=== PATIENT | male | born 1950 | race Caucasian/White ===

== ENCOUNTER → 2016-12-04 | Outpatient (CLI) | payer MEDICARE, BC ==
[~2016-12-04] MED LIST: ASPIRIN EC81 M1 PO; ASPIRIN PO; BRILINTA60 MG PO; FLEXERIL PO; GLUCOTROL XL PO; LISINOPRIL PO; MEDROL PO; METFORMIN HCL1000 M1 PO; METFORMIN PO; METOPROLOL SUCC25 MG PO; NITROSTAT0.4 MG SL; PLAVIX PO; TOPROL XL PO; VICODIN 5/500 T1 TAB PO; ZESTRIL40 MG PO; ZOCOR PO; ZOCOR20 MG PO
--- NOTE | ~2016-12-04 | XA16 ---
[facility] A Service of [facility] RADIOLOGY TEXT RESULTS PATIENT: GM SANDOVAL LOCATION: [facility] : 51 UNIT #: [id number] AGE: [address]: Jerry Lamb MD SEX: M ORDER DR: [id number] [place] [id number] [facility] [place] [facility]. [place], [place] [address] [id number] O MR#: [id number] Acc #: [id number] NAME: GM SANDOVAL : 1950 SEX: M STUDY DATE/TIME: 12/04/2016 UNIT: [facility] ROOM: STUDY DESCRIPTION: XA Angio Extremity Bilateral Attending Physician: Jerry Lamb M.D. Ordering Physician: Jerry Lamb M.D. Primary Care Physician: Maryellen Reed A.P.R.N. MEDICAL IMAGING REPORT This report is preliminary unless electronic signature is present PREOPERATIVE DIAGNOSIS Peripheral vascular disease. POSTOPERATIVE DIAGNOSIS Peripheral vascular disease. PROCEDURE PERFORMED 1. Abdomen, pelvis, and bilateral lower extremity arteriogram. 2. Selective catheterization of the left external iliac artery. 3. Left external iliac artery stent placement with 8 mm x 16 mm Absolute stent. 4. Right external iliac artery stent placement with 8 mm x 18 mm Absolute stent. 5. Right femoral 6 Samoan sheath with 6 Samoan Angio-Seal. ANESTHESIA Conscious sedation with local. INDICATIONS This is a patient with severe peripheral vascular disease with known right SFA occlusion and left common femoral artery stenosis who was recommended arteriogram to evaluate operative options as his last arteriogram was done more than a year ago. He was continuing to smoke off and on. He was on Brilinta and aspirin. Options, risks, and benefits were explained and he understood and agreed to proceed. He was explained that the risks included, but were not limited to, bleeding, infection, thrombosis of the vessels, need for open surgery, etc. PROCEDURE The patient was brought to the operating room and monitored by nurse in [facility] A Service of [facility] RADIOLOGY TEXT RESULTS PATIENT: GM SANDOVAL LOCATION: [facility] : 51 UNIT #: [id number] AGE: [address]: Jerry Lamb MD SEX: M ORDER DR: the room and remained stable. His groins were cleaned, prepped, and draped in a usual sterile fashion. Lidocaine, 1%, was infiltrated. Using ultrasound guidance, right common femoral artery was accessed using a single-wall puncture needle. Calcification was noted in the common femoral artery and a disease-free spot just above the calcification was selected and successful catheterization was achieved and the 4 Samoan sheath was placed. A 4 Samoan Omniflush catheter was placed at the level of the L1 vertebra and 20 mL of Visipaque was injected at 10 mL per second. Abdominal angiogram was obtained. Catheter was pulled down to about the aortic bifurcation and AP view of the pelvis was taken with 15 mL of Visipaque at 10 mL per second. Left external iliac artery was the successfully catheterized and a left lower extremity angiogram was taken with 40 mL of Visipaque at 4 mL per second. After deciding to intervene, patient was given 5000 units of heparin. Using an Amplatz wire, a 6 Samoan 45 cm [place] Destination sheath was placed in the left external iliac artery. Using right anterior oblique view and magnified images and roadmapping techniques, 8 mm x 16 mm Absolute stent was deployed in the left external iliac artery successfully. Post stent placement balloon angioplasty was performed with a 7 mm x 40 mm balloon with excellent results. Next, the sheath was pulled back into the right external iliac artery and the wire was advanced to the aorta. Using left anterior oblique view, magnified images of the right pelvis were taken with hand injections. Next, an 8 mm x 18 mm Absolute stent was placed in the right external iliac artery extending close to the inguinal ligament just above the takeoff of the lateral circumflex iliac vessels and the inferior epigastric vessels. Post angioplasty was performed with a 7 mm balloon again with excellent results. Right lower extremity angiogram was then taken with 40 mL of Visipaque at 4 mL per second. After satisfactory images were obtained, contrast was then injected to confirm common femoral sheath placement and 6 Samoan Angio-Seal was used to close the right groin successfully. Patient was transferred to the recovery room in stable condition. FINDINGS Abdominal angiogram reveals single patent renal arteries bilaterally. Abdominal aorta is widely patent. Inferior mesenteric artery appears to be open, but the origin may be occluded and filling by collaterals. The right and left common iliac arteries were patent. The right external iliac artery has severe stenosis, especially in the distal portion. The left external iliac artery has moderate stenosis in the distal portion. On the left side, the common femoral artery has severe 80% stenosis. Profunda femoral artery is patent. Superficial femoral was patent, but has szrlnzmk-cu-nyltrf stenosis approximately 7 cm from the origin and also 10 cm from the origin. These are fairly focal areas. The stenosis is probably in the range of 60%. Rest of this artery is patent, except STS. [facility] A Service of [facility] RADIOLOGY TEXT RESULTS PATIENT: GM SANDOVAL LOCATION: [facility] : 51 UNIT #: [id number] AGE: [address]: Jerry Lamb MD SEX: M ORDER DR: the adductor hiatus where there is approximately 50% narrowing over 1 cm area. Above knee and below knee popliteal arteries are patent and relatively disease free. Below the knee, two-vessel runoff is seen in the peroneal artery and the posterior tibial artery. Anterior tibial artery occluded beyond a few cm. Peroneal artery tapers off in the distal calf. Posterior tibial artery has runoff into the vessel into the foot. The right lower extremity common femoral artery is patent. Superficial femoral artery is occluded just beyond the origin. Profunda femoral artery is patent. The SFA has a stent from the proximal SFA extending to just beyond the adductor hiatus into the proximal popliteal artery. There are multiple stents in this area. All the stents were completely occluded. Above knee popliteal artery reconstitutes just beyond the stent by large collaterals and is widely patent. The reconstitution of the popliteal artery is approximately 9 cm from the knee joint. Below knee popliteal artery is patent. Once again, two-vessel runoff is seen in the peroneal artery and the posterior tibial artery with the anterior tibial artery being occluded. Dominant flow is through the posterior tibial artery into the foot. Post stent placement images showed excellent results bilaterally in the iliac arteries with no residual stenosis or extravasation. IMPRESSION 1. Left external iliac artery has moderate stenosis of approximately 50%. On the right side, there is severe external iliac artery stenosis of approximately 80%. 2. Successful bilateral iliac artery stent placement. 3. Left common femoral artery severe stenosis in the range of 80% to 90%. Proximal SFA areas of stenosis, as described above. Two-vessel runoff is seen below the knee in the peroneal artery and the posterior tibial artery. 4. On the right side, right SFA is occluded with above knee popliteal artery reconstitution 9 cm above the knee joint. Two-vessel runoff is seen below the knee on the right side in the posterior tibial artery and the peroneal artery. 5. Postop plan is to consider left common femoral artery endarterectomy with possible left SFA stent placement with an antegrade approach and right femoral to above knee popliteal artery bypass. Dictated by... Jerry Lamb M.D. THIS IS AN ELECTRONICALLY VERIFIED REPORT Jerry Lamb M.D. at 12/08/2016 9:54 AM /asa TD: 12/04/2016 11:51 [facility] A Service of [facility] RADIOLOGY TEXT RESULTS PATIENT: GM SANDOVAL LOCATION: [facility] : 51 UNIT #: [id number] AGE: [address]: Jerry Lamb MD SEX: M ORDER DR: ANITA #: [id number] MEDICAL IMAGING REPORT Page 1 of 1 COPY
[2016-12-04 07:42] LABS: HEMATOCRIT 48.2 % (38.0-50.0); HEMOGLOBIN 15.9 gm/dL (13.0-16.0); MEAN CELL VOLUME 89.4 FL (83-96); MEAN CORPUSCULAR HEMOGLOBIN 29.4 PG (28-34); MEAN CORPUSCULAR HGB CONC 32.9 g/dL (30-36); MEAN PLATELET VOLUME 7.3 FL (6.5-11.5); RED BLOOD COUNT 5.4 X10e (3.90-5.60); RED CELL DISTRIBUTION WIDTH 14.3 % (11.0-15.5); WHITE BLOOD COUNT 9.2 X10e3 (4.0-10.5)
[2016-12-04 07:58] LABS: PARTIAL THROMBOPLASTIN TIME 25.2 SECONDS (23.5-31.3); PROTHROMBIN TIME (PATIENT) 10.8 SECONDS (9.6-11.5)
[2016-12-04 08:17] LABS: BUN/CREATININE RATIO 21.66; CALCIUM SERUM 9.4 mg/dL (8.4-10.2); CREATININE SERUM 0.6 mg/dL (0.6-1.4); GLOM FILT RATE Estimated 105.6 mL/min (>60); POTASSIUM 4.5 mmol/L (3.5-5.1)
== END | disposition home or self-care (01) ==
LOC: CIVR 07:09
PROVIDERS: Surgery Vascular Surgery
DX: I70.203 Unspecified atherosclerosis of native arteries of extremities, bilateral legs (principal); F17.200 Nicotine dependence, unspecified, uncomplicated; I74.3 Embolism and thrombosis of arteries of the lower extremities; I49.3 Ventricular premature depolarization; Z79.82 Long term (current) use of aspirin; Z79.02 Long term (current) use of antithrombotics/antiplatelets
CPT/HCPCS: 36415; 75625; 75716; 80048; 85027; 85610; 85730; C1725; C1760; C1876; J1644; J2250; J3010; Q9967

== ENCOUNTER → 2017-03-16 | Outpatient (CLI) | payer MEDICARE, BC ==
--- NOTE | ~2017-03-16 | US136 ---
[facility] A Service of [facility] RADIOLOGY TEXT RESULTS PATIENT: GM SANDOVAL LOCATION: [facility] : 51 UNIT #: [id number] AGE: [address]: Jerry Lamb MD SEX: M ORDER DR: [id number] [facility] [address] [facility]. [place], [place] [address] [id number] O MR#: [id number] Acc #: [id number] NAME: GM SANDOVAL : 1950 SEX: M STUDY DATE/TIME: 03/16/2017 11:33 UNIT: [facility] ROOM: STUDY DESCRIPTION: US U/L Ext Art [facility] Bil Attending Physician: Jerry Lamb M.D. Referring Physician: Jerry Lamb M.D. Ordering Physician: Jerry Lamb M.D. MEDICAL IMAGING REPORT This report is preliminary unless electronic signature is present EXAM Bilateral lower extremity JESUS HISTORY Peripheral arterial disease. FINDINGS Right brachial pressure is 140, left is 140. Right dorsalis pedis pressure is 154, posterior tibial is 155, for an JESUS of 1.05, and a first toe pressure of 111 mmHg. Left dorsalis pedis pressure is 117, posterior tibial 126, for an JESUS of 0.85, and a first toe pressure of 89 mmHg. PVR waveforms at the ankle level appear to be intact with normal waveforms bilateral. There is slightly less amplitude at the left ankle versus the right. First digital waveforms are intact bilateral but slightly diminished in the left versus the right. Arterial waveforms of the dorsalis pedis and posterior tibial arteries demonstrate triphasic waveforms at the right lower extremity and biphasic waveforms in the left lower extremity. IMPRESSION 1. No arterial insufficiency of the right lower extremity with adequate perfusion of the first toe. 2. Mild arterial insufficiency of the left lower extremity with adequate perfusion of the first toe. Dictated by... Bud Orlando M.D. [facility] A Service of [facility] RADIOLOGY TEXT RESULTS PATIENT: GM SANDOVAL LOCATION: [facility] : 51 UNIT #: [id number] AGE: [address]: Jerry Lamb MD SEX: M ORDER DR: THIS IS AN ELECTRONICALLY VERIFIED REPORT Bud Orlando M.D. at 03/17/2017 10:39 AM FPN/pcl TD: 03/16/2017 21:32 JOB #: [id number] MEDICAL IMAGING REPORT Page 1 of 1 COPY
--- NOTE | ~2017-03-16 | US83 ---
[facility] A Service of [facility] RADIOLOGY TEXT RESULTS PATIENT: GM SANDOVAL LOCATION: [facility] : 51 UNIT #: [id number] AGE: [address]: Jerry Lamb MD SEX: M ORDER DR: [id number] [facility] [address] [place], [place] [address] [id number] O MR#: [id number] Acc #: [id number] NAME: GM SANDOVAL : 1950 SEX: M STUDY DATE/TIME: 03/16/2017 12:07 UNIT: [facility] ROOM: STUDY DESCRIPTION: US LE [employer] Attending Physician: Jerry Lamb M.D. Referring Physician: Jerry Lamb M.D. Ordering Physician: Jerry Lamb M.D. Primary Care Physician: Maryellen Ernst MEDICAL IMAGING REPORT This report is preliminary unless electronic signature is present EXAM Left lower extremity arterial duplex HISTORY Peripheral arterial disease. History of recent left leg endarterectomy. FINDINGS The left common femoral artery appears widely patent with minimal plaque noted distally and a velocity of 93 cm/sec. The profunda femoral artery is widely patent with a velocity of 240 cm/sec. The superficial femoral artery is noted to be patent throughout its course with diffuse uqqq-hw-fsjvopox atherosclerotic debris, especially in the mid- and distal portions. Proximal SFA velocity is 85 cm/sec, mid-thigh 98 cm/sec, and distally 110 cm/sec. The popliteal artery appears patent with diffuse but mild atherosclerotic disease and no stenosis noted. Velocity is 39 cm/sec. The tibioperitoneal trunk is widely patent with a velocity of 56 cm/sec. Posterior tibial artery velocity is 57 cm/sec, peroneal artery 30 cm/sec, and anterior tibial 63 cm/sec. There is no appreciable plaque or stenosis noted of the tibial vessels. IMPRESSION Patent left lower extremity vasculature with yovm-hi-hrflyawd atherosclerotic plaque in the superficial femoral artery but a widely patent outflow. Dictated by... Bud Orlando M.D. THIS IS AN ELECTRONICALLY VERIFIED REPORT Bud Orlando M.D. at 03/31/2017 4:08 PM [facility] A Service of [facility] RADIOLOGY TEXT RESULTS PATIENT: GM SANDOVAL LOCATION: [facility] : 51 UNIT #: [id number] AGE: [address]: Jerry Lamb MD SEX: M ORDER DR: DORENE/dami TD: 03/16/2017 22:03 JOB #: [id number] MEDICAL IMAGING REPORT Page 1 of 1 COPY
== END | disposition home or self-care (01) ==
LOC: CNIV 11:21
DX: I73.9 Peripheral vascular disease, unspecified (principal); I77.1 Stricture of artery
CPT/HCPCS: 93922; 93926